=== PATIENT | male | born 1990 | race Caucasian/White ===

== ENCOUNTER 2019-10-15 11:07 | Emergency (ER) | payer OTHER ==
[2019-10-15 11:18] VITALS: BP 151/94; PULSE 71; TEMP 98.4; BMI 32.5
--- NOTE | 2019-10-15 11:19 | PDOC ---
Rapid Medical Evaluation Time Seen by Provider: 10/15/19 11:11 Medical Evaluation: Allergies Allergy/AdvReac Type Severity Reaction Status Date / Time No Known Allergies Allergy Verified 10/15/19 11:11 10/15/19 11:11 CC: chest pressure and tightness since 9-12 months intermittently. recent mri of left shoulder and states tendonosis. otherwise no other complaints. no triggers and goes away with relaxation. Exam: vss, nonreproducible cp Plan: ekg Discharge Disposition - Diagnosis Chest pain - Referrals - Patient Instructions - Post Discharge Activity
--- NOTE | 2019-10-15 11:31 | PDOC ---
History of Present Illness - General Stated Complaint: CHEST PAIN Time Seen by Provider: 10/15/19 11:11 History Source: Patient - History of Present Illness Presenting Symptoms: Chest Pain Timing/Duration: reports: other (chronic) Past History - Medical History Allergies/Adverse Reactions: Allergies Allergy/AdvReac Type Severity Reaction Status Date / Time No Known Allergies Allergy Verified 10/15/19 11:11 Home Medications: Ambulatory Orders Ibuprofen [Motrin -] 600 mg PO QID #28 tablet 10/15/19 COPD: No - Psycho-Social/Smoking History Smoking History: Current every day smoker Have you smoked in the past 12 months: Yes Information on smoking cessation initiated: Yes - Substance Abuse Hx (Audit-C & DAST Scrn) How often the patient has a drink containing alcohol: Monthly or less Number of drinks the patient has on a typical day: 1 or 2 How often the patient has six or more drinks on one occasion: Never Score: In Men: 4 or > Positive; In Women: 3 or > Positive: 1 Screen Result (Pos requires Nsg. Audit-10AR): Negative In the last yr the pt used illegal drug/Rx for NonMed reason: Yes Score: Yes response is considered Positive: 1 Screen Result (Positive result requires Nsg. DAST-10): Positive Review of Systems - Review of Systems Constitutional: No: Chills, Fever Respiratory: No: Cough, Shortness of Breath, Wheezing Cardiac (ROS): Yes: Chest Pain. No: Lightheadedness, Palpitations, Syncope *Physical Exam - Vital Signs Last Vital Signs Temp Pulse Resp BP Pulse Ox 98.4 F 71 18 151/94 100 10/15/19 11:11 10/15/19 11:11 10/15/19 11:11 10/15/19 11:11 10/15/19 11:11 - Physical Exam General Appearance: Yes: Appropriately Dressed. No: Apparent Distress HEENT: positive: Normal Voice Neck: positive: Supple Respiratory/Chest: positive: Lungs Clear, Normal Breath Sounds. negative: Respiratory Distress Cardiovascular: positive: Regular Rate, S1, S2 Integumentary: positive: Dry, Warm Neurologic: positive: Fully Oriented, Alert, Normal Mood/Affect Medical Decision Making - Medical Decision Making 10/15/19 11:26 29 yo M, endorses h/o "tendinosis" to L shoulder dx on MRI in the past, chronic L shoulder pain that radiates to chest and back, former smoker (quit 1 year ago after 6 pack year hx), now vapes, here w/ his usual L shoulder pain radiating to chest this am, since resolved. No sob, palpitations, diaphoresis, n/v. Denies crack/cocaine use. No sig fmhx see exam Chronic L shouder/chest pain Here w/ same this am, since resolved Dx w/ tendinois to L shoulder in past W/u for cardiac source neg in past per pt No crack/cocaine use No sig fmhx No CP in ED Stable and well corey EKG at triage wnl Dc w/ PMD referral Discharge - Discharge Information Problems reviewed: Yes Clinical Impression/Diagnosis: Chest pain Qualifiers: Chest pain type: unspecified Qualified Code(s): R07.9 - Chest pain, unspecified Shoulder pain, left Qualifiers: Chronicity: chronic Qualified Code(s): M25.512 - Pain in left shoulder; G89.29 - Other chronic pain Condition: Improved Disposition: HOME - Additional Discharge Information Prescriptions: Ibuprofen [Motrin -] 600 mg PO QID #28 tablet - Follow up/Referral Referrals: Hal Melchor MD [Staff Physician] - - Patient Discharge Instructions Additional Instructions: You chest pain might be caused by you reported history of L shoulder tendinosis Take medications as directed and follow up with primary care - Post Discharge Activity
--- NOTE | 2019-10-15 11:36 | PDOC ---
*Physical Exam - Vital Signs Last Vital Signs Temp Pulse Resp BP Pulse Ox 98.4 F 71 18 151/94 100 10/15/19 11:11 10/15/19 11:11 10/15/19 11:11 10/15/19 11:11 10/15/19 11:11 Heart Score/ECG Review #1 General ECG Interpretation: Sinus Rhythm, Normal Rate, Normal Intervals, No acute ischemic changes Discharge - Discharge Information Problems reviewed: Yes Clinical Impression/Diagnosis: Chest pain Qualifiers: Chest pain type: unspecified Qualified Code(s): R07.9 - Chest pain, unspecified Shoulder pain, left Qualifiers: Chronicity: chronic Qualified Code(s): M25.512 - Pain in left shoulder Condition: Improved Disposition: HOME - Additional Discharge Information Prescriptions: Ibuprofen [Motrin -] 600 mg PO QID #28 tablet - Follow up/Referral Referrals: Hal Melchor MD [Staff Physician] - - Patient Discharge Instructions Additional Instructions: You chest pain might be caused by you reported history of L shoulder tendinosis Take medications as directed and follow up with primary care - Post Discharge Activity
--- NOTE | 2019-10-15 12:27 | EKG ---
Test Reason : Blood Pressure : / mmHG Vent. Rate : 063 BPM Atrial Rate : 063 BPM P-R Int : 162 ms QRS Dur : 112 ms QT Int : 402 ms P-R-T Axes : 000 081 067 degrees QTc Int : 411 ms NORMAL SINUS RHYTHM NORMAL ECG NO PREVIOUS ECGS AVAILABLE Confirmed by Juan Francisco Alicea MD ([id number]) on 10/15/2019 12:26:48 PM Referred By: Confirmed By:Juan Francisco Alicea MD
== END 2019-10-15 11:36 | disposition home or self-care (01) ==
LOC: JERFT 11:07
DX: R07.9 Chest pain, unspecified (principal); M25.512 Pain in left shoulder; G89.29 Other chronic pain
CPT/HCPCS: 93005; 93010; 99284-25